=== PATIENT | female | born 1950 | race Two or more races ===

== ENCOUNTER 2018-12-07 21:15 | Emergency (ER) | payer MEDICARE, BC ==
[~2018-12-07 21:15] MED LIST: ASPI81TA31 PO; ATEN25TA PO; ATOR20TA PO; CARB200T PO; CLOP75TA33 PO; METF-440 PO; OMEP20CA10 PO
== END 2018-12-07 21:34 | disposition left against medical advice (07) ==
LOC: ER 21:20
DX: Z53.21 Procedure and treatment not carried out due to patient leaving prior to being seen by health care provider (principal)